=== PATIENT | male | born 1980 | race American Indian/Alaskan Native ===

== ENCOUNTER 2018-10-07 10:27 | Day surgery (SDC) | payer BC ==
[~2018-10-07 10:27] MED LIST: ANCEF/STERILE WATER 2 GM/20 ML IV NR; MARCAINE 0.25% INFILTRATI ONE; NACL 0.9% IR ONE
--- NOTE | 2018-10-07 11:13 | Anesthesia Consultation ---
Anesthesia Consult and Med Hx Date of service: 10/07/18 - Airway Anesthetic Teeth Evaluation: Good ROM Head & Neck: Adequate Mental/Hyoid Distance: Adequate Mallampati Class: Class II Intubation Access Assessment: Good - Pulmonary Exam CTA: Yes - Cardiac Exam Cardiac Exam: RRR - Pre-Operative Health Status ASA Pre-Surgery Classification: ASA1 Proposed Anesthetic Plan: General - Pulmonary Hx Smoking: No Hx Sleep Apnea: No (CHRISTINA PRE SCREEN LOW RISK) - Cardiovascular System Hx Hypertension: No - Other Systems Hx Substance Use: Yes (MARIJUANA 2-3 X PER WEEK) Hx Cancer: No
--- NOTE | 2018-10-07 11:13 | Anesthesia Day of Surgery ---
Anesthesia Day of Surgery - Day of Surgery Patient Examined: Yes Patient H&P Reviewed: Yes Patient is NPO: Yes
[2018-10-07] MEDS ORDERED: ZOFRAN IV PRN (11:15)
[2018-10-07] MEDS ORDERED: DILAUDID IV PRN (11:15)
[2018-10-07] MEDS ORDERED: LACTATED RINGERS 1,000 ML IV SCH (12:00)
[2018-10-07] MEDS ORDERED: VERSED IV NR (12:00)
[2018-10-07] MEDS ORDERED: SUBLIMAZE ONE (12:54)
[2018-10-07] MEDS ORDERED: DIPRIVAN 10 MG/ML IV ONE (12:54)
[2018-10-07] MEDS ORDERED: MARCAINE 0.25% INFILTRATI ONE (13:26)
[2018-10-07] MEDS ORDERED: NACL 0.9% IR ONE (13:52)
[2018-10-07] MEDS ORDERED: NEO SYNEPHRINE/NS Syringe(OR USE) IV ONE (13:53)
[2018-10-07] MEDS ORDERED: ROBINUL ONE (13:53)
[2018-10-07] MEDS ORDERED: TORADOL ONE (13:53)
[2018-10-07] MEDS ORDERED: XYLOCAINE MPF 2% ONE (13:53)
[2018-10-07] MEDS ORDERED: DECADRON ONE (13:53)
[2018-10-07] MEDS ORDERED: ZOFRAN ONE (13:53)
--- NOTE | 2018-10-07 13:57 | Short Stay Summary ---
Short Stay Documentation Date of service: 10/07/18 - History H&P: obtained from office - Allergies and Medications Current Medications: Allergies No Known Allergies Allergy (Verified 09/25/18 11:53) Home Medications Medication Instructions Recorded Confirmed Last Taken Type No Known Home Medications [No 09/25/18 09/25/18 Unknown History Reported Home Medications] Active Medications Cefazolin Sodium (Ancef/Sterile Water 2 Gm/20 Ml) 2 gm IV PREOP NR Stop: 10/07/18 23:00 Hydromorphone HCl (Dilaudid) 0.5 mg IV Q10MIN PRN PRN Reason: Pain , Severe (7-10) Stop: 10/07/18 20:00 Lactated Ringer's (Lactated Ringers) 1,000 mls @ 100 mls/hr IV DIRECT RENETTA Last Admin: 10/07/18 11:50 Dose: 100 mls/hr Documented by: Midazolam HCl (Versed) 2 mg IV PREOP NR Stop: 10/07/18 23:59 Last Admin: 10/07/18 12:52 Dose: 2 mg Documented by: Ondansetron HCl (Zofran) 4 mg IV ONCE PRN PRN Reason: Nausea And Vomiting Stop: 10/07/18 20:00 - Brief post op/procedure progress note Date of procedure: 10/07/18 Pre-op diagnosis: phimosis Post-op diagnosis: same Procedure: circ Anesthesia: GETA Surgeon: SARAH MATUTE Estimated blood loss: minimal Pathology: list (forskin) Specimen disposition: to lab Condition: stable - Hospital course Hospital course: foster on chart - Disposition Disposition: TO HOME OR SELFCARE Short Stay Discharge Plan Follow up with: PRIMARY CARE, [Primary Care Provider] - 7 Days
--- NOTE | 2018-10-07 14:09 | Operative Report ---
PREOPERATIVE DIAGNOSIS: Phimosis. POSTOPERATIVE DIAGNOSIS: Phimosis. PROCEDURE: Circumcision. SURGEON: Solomon Guthrie MD ANESTHESIA: General. ESTIMATED BLOOD LOSS: Minimal. FLUIDS: Crystalloid. COMPLICATIONS: No complications. INDICATIONS: This 38-year-old gentleman seen in the office with recurrent phimosis on exam, risks, benefits, and complications were explained. The patient agreed to proceed. DESCRIPTION OF PROCEDURE: The patient was taken to the operative suite, placed in a supine position. After adequate general anesthesia, he was prepped and draped in a sterile fashion. Foreskin was marked at the coronal ridge. Dorsal and ventral slit was made. Foreskin was circumferentially removed and sent for routine pathologic evaluation. Proximal shaft skin was retracted. Adequate hemostasis was achieved. Proximal and distal skin was then reapproximated and closed with 2-0 chromic in an interrupted fashion. Adequate hemostasis achieved. Xeroform gauze was placed as well as Lavell and Coban. The patient tolerated the procedure well and was extubated and taken to recovery room and go home on [place] and follow up in the office. JOB# [id number] PATTIE/JAM
[2018-10-07 14:35] VITALS: BP 127/87
[2018-10-07] MEDS ORDERED: NORCO 5/325 PO PRN (14:41)
== END 2018-10-07 15:55 | disposition home or self-care (01) ==
LOC: OR 10:27
PROVIDERS: ATTEND Urology
DX: N47.1 Phimosis (principal); Z79.899 Other long term (current) drug therapy
CPT/HCPCS: 54161; 88304; J0690; J1100; J1885; J2250; J2370; J2405; J2704; J3010; J7120